=== PATIENT | male | born 1930 ===

== ENCOUNTER 2017-05-11 11:25 | Day surgery (SDC) | payer MEDICARE, OTHER ==
[2017-05-08 08:57] VITALS: BMI 20.9
[2017-05-11] MEDS ORDERED: cefTRIAXone IV 1 gm in Dextros 0 ML IVPB ONE (12:17)
[2017-05-11] MEDS ORDERED: Iohexol 240 (50 ml) ONE (12:17)
[2017-05-11] MEDS ORDERED: Lactated Ringer's 1,000 ML IV ONE (12:40)
[2017-05-11] MEDS ORDERED: Ciprofloxacin 400mg/200ml D5W 400 MG/200 ML BAG IVPB ONE (12:47)
[2017-05-11] MEDS ORDERED: Midazolam 2 MG/2 ML VIAL ONE (12:47)
[2017-05-11 14:27] VITALS: RESP 18; O2SAT 99
--- NOTE | 2017-05-11 17:08 | RAD ---
HISTORY: MICROSCOPIC HEMATURIA, BPH COMPARISON: No prior. FINDINGS: BOWEL: Normal. No obstruction. No free air. BONES: No acute findings. Facet arthropathy mid lower lumbar spine. Asymmetric right side greater than left. OTHER FINDINGS: None. IMPRESSION: No acute findings related to/accounting for the clinical presentation. No significant interval change compared to the prior examination(s).
[2017-05-11 17:57] VITALS: BP 157/72; PULSE 74; TEMP 98
--- NOTE | 2017-05-28 10:00 | PCM.OP ---
Dr Ramirez: Cystoscopy procedure: Preoperative diagnosis: BPH, microscopic hematuria. Operation: cystoscopy Gross finding: good blood capacity, no tumors ____ were observed during emptying or filling of the blood, [bridgette] trabeculated bladder with cellules formation, enlarged lateral lobes of the prostate gland, elongated prostatic urethra, inflammation with bleeding of the prostate gland noted, membranous and pendulous urethra normal. Technique: this patient was placed in lithotomy position and then the genitalia was prepped and draped the usual fashion. xylocaine 2% gel was ___ in urethra and under a number 22 panendoscope was introduced in the bladder on the direct vision. Postoperative diagnostic BPH: the prostate bleeding The procedure was terminated and because of the bleeding, a number 22 5 cc hicks was left in dwelling, in the bladder to be connected to gravity drainage. The patient returned to recovery room satisfactory condition. SHAMAR
== END 2017-05-11 18:00 | disposition home or self-care (01) ==
LOC: C.SDS 11:25
PROVIDERS: ATTEND Urology
DX: R31.0 Gross hematuria (principal); N40.0 Benign prostatic hyperplasia without lower urinary tract symptoms; N41.9 Inflammatory disease of prostate, unspecified
CPT/HCPCS: 52000; 74000; 82948; C1758; J0744; J7120